=== PATIENT | female | born 1995 | race Caucasian/White ===

== ENCOUNTER 2017-08-04 16:29 | Emergency (ER) | payer OTHER, MEDICAID ==
[~2017-08-04] VITALS: Ht 185.4 cm; Wt 51.7 kg
[2017-08-04 16:35] VITALS: BP 111/56
[2017-08-04] MEDS ORDERED: ZOLOFT25 MG PO (16:36)
[2017-08-04] MEDS ORDERED: AMOXICILLIN 50500 MG PO (17:05)
== END 2017-08-04 17:11 | disposition home or self-care (01) ==
LOC: M.ERS 16:29
DX: H72.92 Unspecified perforation of tympanic membrane, left ear (principal); F32.9 Major depressive disorder, single episode, unspecified

== ENCOUNTER 2017-09-28 18:46 | Emergency (ER) | payer OTHER, MEDICAID ==
[~2017-09-28] VITALS: Ht 185.4 cm; Wt 52.2 kg
[~2017-09-28 18:46] MED LIST: AMOXICILLIN 50500 MG PO; ZOLOFT25 MG PO
[2017-09-28 19:22] LABS: ABSOLUTE EOSINOPHILS 0.1 thou/uL (0.0-0.7); ABSOLUTE LYMPHOCYTES 2.4 thou/uL (0.8-5.3); ABSOLUTE NEUTROPHILS 3.9 thou/uL (1.6-8.1); BASOPHILS 0.6 %; EOSINOPHILS 1.4 %; HEMATOCRIT 37.6 % (37.0-47.0); HEMOGLOBIN 12.7 gm/dL (12.0-15.0); LYMPHOCYTES 32.2 %; MCH 29.2 pg (26.0-34.0); MCHC 33.6 g/dL (28.0-37.0); MCV 86.8 fL (80.0-100.0); MONOCYTES 12.9 %; MPV 8.8 fl. (7.2-11.1); NUCLEATED RBCS 0 /100WBC; PLATELET COUNT* 231 thou/uL (150-400); POLYS 52.9 %; RBC 4.33 mil/uL (4.20-5.00); RDW-CV 14.4 % (10.5-14.5); WBC 7.4 thou/uL (4.0-11.0)
[2017-09-28 19:31] LABS: CALCIUM 9.1 mg/dL (8.5-10.1); CREATININE 0.7 mg/dL (0.6-1.3); POTASSIUM 3.7 mmol/L (3.5-5.1)
[2017-09-28 19:36] LABS: ALBUMIN 3.7 g/dL (3.4-5.0); TOTAL BILIRUBIN 0.4 mg/dL (<0.1-1.0); TOTAL PROTEIN 6.4 g/dL (6.4-8.2)
[2017-09-28] MEDS ORDERED: ROBAXIN500 MG PO (20:17)
[2017-09-28 20:33] VITALS: BP 101/52
--- NOTE | 2017-09-30 12:59 | EKG ---
[place] [address] ELECTROCARDIOGRAM REPORT Name: SERG KELLY Room: [facility]#: [id number] Admission: 09/28/17 Attend Phys: Discharge: 09/28/17 Date of : [birth year] Report #: [id number] THIS REPORT FOR: //name// [facility] ED Test Date: 2017-09-28 Test Time: 18:51:01 Pat Name: SERG KELLY Department: Room: Gender: F Customer Support Specialist: Marcus GOLDMAN : 1995 Requested By: Guerrero Jorgensen Order Number: [id number] MD: Swapnil Robles Measurements Intervals [place] Rate: 64 P: -3 FL: 145 QRS: 79 QRSD: 96 T: 49 QT: 414 QTc: 427 Interpretive Statements Sinus rhythm No previous ECG available for comparison Electronically Signed On 09-30-2017 12:58:52 CDT by Swapnil Robles [email or web address] <ELECTRONICALLY SIGNED> By: Aashish Robles MD, [facility] 09/30/17 1258 1851 1851 Aashish Robles MD, FACC /EPI
== END 2017-09-28 20:34 | disposition home or self-care (01) ==
LOC: M.ERS 18:46
PROVIDERS: Nurse Practitioner Family
DX: R07.89 Other chest pain (principal); F32.9 Major depressive disorder, single episode, unspecified; F17.200 Nicotine dependence, unspecified, uncomplicated

== ENCOUNTER 2018-06-23 16:12 | Emergency (ER) | payer OTHER, MEDICAID ==
[~2018-06-23] VITALS: Ht 185.4 cm; Wt 51.7 kg
[~2018-06-23 16:12] MED LIST changes: +ROBAXIN500 MG PO
[2018-06-23] MEDS ORDERED: NOHOMEMEDICATIONS (16:32)
[2018-06-23 17:10] VITALS: BP 124/62
== END 2018-06-23 17:10 | disposition home or self-care (01) ==
LOC: M.ERS 16:12
DX: S40.022A Contusion of left upper arm, initial encounter (principal); F32.9 Major depressive disorder, single episode, unspecified; X58.XXXA Exposure to other specified factors, initial encounter; Y93.89 Activity, other specified; Y92.89 Other specified places as the place of occurrence of the external cause; Y99.8 Other external cause status

== ENCOUNTER 2018-11-18 11:53 | Emergency (ER) | payer OTHER, MEDICAID ==
[~2018-11-18] VITALS: Ht 185.4 cm; Wt 52.2 kg
[~2018-11-18 11:53] MED LIST changes: +ACETAMINOPHEN-1 EAC1 PO; +NOHOMEMEDICATIONS
[2018-11-18] MEDS ORDERED: IBUPROFEN 600600 M1 PO (13:51)
[2018-11-18] MEDS ORDERED: ROBAXIN 750 MG750 M1 PO (13:51)
[2018-11-18 14:00] VITALS: BP 103/56
== END 2018-11-18 14:00 | disposition home or self-care (01) ==
LOC: M.ERS 11:53
DX: M25.511 Pain in right shoulder (principal); F32.9 Major depressive disorder, single episode, unspecified; Z90.49 Acquired absence of other specified parts of digestive tract; Z91.040 Latex allergy status

== ENCOUNTER 2019-01-18 21:42 | Emergency (ER) | payer OTHER ==
[~2019-01-18] VITALS: Ht 185.4 cm; Wt 52.2 kg
[~2019-01-18 21:42] MED LIST changes: +IBUPROFEN 600600 M1 PO; +ROBAXIN 750 MG750 M1 PO
[2019-01-18 23:10] VITALS: BP 117/67
== END 2019-01-18 23:12 | disposition home or self-care (01) ==
LOC: M.ERS 21:42
DX: M25.531 Pain in right wrist (principal); F32.9 Major depressive disorder, single episode, unspecified; Z91.040 Latex allergy status; Z90.49 Acquired absence of other specified parts of digestive tract

== ENCOUNTER 2019-04-20 13:30 | Emergency (ER) | payer OTHER ==
[~2019-04-20] VITALS: Ht 185.4 cm; Wt 52.2 kg
[2019-04-20] MEDS ORDERED: IBUPROFEN 800800 M1 PO (14:46)
[2019-04-20 14:55] VITALS: BP 115/89
== END 2019-04-20 14:56 | disposition home or self-care (01) ==
LOC: M.ERS 13:30
DX: G89.29 Other chronic pain (principal); M25.511 Pain in right shoulder; F32.9 Major depressive disorder, single episode, unspecified; Z90.49 Acquired absence of other specified parts of digestive tract; Z91.040 Latex allergy status

== ENCOUNTER 2019-04-30 19:51 | Emergency (ER) | payer OTHER ==
[~2019-04-30] VITALS: Ht 185.4 cm; Wt 52.2 kg
[~2019-04-30 19:51] MED LIST changes: +IBUPROFEN 800800 M1 PO
[2019-04-30] MEDS ORDERED: ONDANSETRON HCL4 M2 PO (21:03)
[2019-04-30] MEDS ORDERED: IBUPROFEN 800800 M1 PO (21:03)
[2019-04-30 21:14] VITALS: BP 120/66
== END 2019-04-30 21:16 | disposition home or self-care (01) ==
LOC: M.ERS 19:51
DX: M54.6 Pain in thoracic spine (principal); F32.9 Major depressive disorder, single episode, unspecified; F17.210 Nicotine dependence, cigarettes, uncomplicated; Z91.040 Latex allergy status; Z98.890 Other specified postprocedural states; W01.0XXA Fall on same level from slipping, tripping and stumbling without subsequent striking against object, initial encounter; Y93.89 Activity, other specified; Y92.89 Other specified places as the place of occurrence of the external cause; Y99.0 Civilian activity done for income or pay

== ENCOUNTER 2020-01-23 21:34 | Emergency (ER) | payer OTHER ==
[~2020-01-23] VITALS: Ht 185.4 cm; Wt 49.9 kg
[~2020-01-23 21:34] MED LIST changes: +ONDANSETRON HCL4 M2 PO
[2020-01-23 22:28] LABS: ABSOLUTE LYMPHOCYTES 1.1 thou/uL (0.8-5.3); ABSOLUTE MONOCYTES 0.4 thou/uL (0.0-1.2); ABSOLUTE NEUTROPHILS 7.7 thou/uL (1.6-8.1); BASOPHILS 0.3 %; EOSINOPHILS 0.2 %; HEMATOCRIT 40.9 % (37.0-47.0); HEMOGLOBIN 14.1 gm/dL (12.0-15.0); LYMPHOCYTES 12.2 %; MCH 30.3 pg (26.0-34.0); MCHC 34.4 g/dL (28.0-37.0); MCV 88.1 fL (80.0-100.0); MONOCYTES 4.4 %; MPV 8.8 fl. (7.2-11.1); NUCLEATED RBCS 0 /100WBC; PLATELET COUNT* 236 thou/uL (150-400); POLYS 82.9 %; RBC 4.65 mil/uL (4.20-5.00); RDW-CV 14.3 % (10.5-14.5); WBC 9.3 thou/uL (4.0-11.0)
[2020-01-23 22:47] LABS: CALCIUM 9.4 mg/dL (8.5-10.1); CREATININE 0.8 mg/dL (0.6-1.3)
[2020-01-23 22:51] LABS: ALBUMIN 4.6 g/dL (3.4-5.0); TOTAL BILIRUBIN 0.9 mg/dL (<0.1-1.0); TOTAL PROTEIN 7.6 g/dL (6.4-8.2)
[2020-01-23 23:50] LABS: URINE BLOOD NEGATIVE (Negative); URINE CLARITY CLEAR; URINE COLOR YELLOW; URINE GLUCOSE-RANDOM NEGATIVE (Negative); URINE KETONES 1+ (Negative); URINE LEUKOCYTES-REFLEX NEGATIVE (Negative); URINE NITRITE-REFLEX NEGATIVE (Negative); URINE PROTEIN NEGATIVE (Negative); URINE SPECIFIC GRAVITY >= 1.030 (1.005-1.030); URINE UROBILINOGEN 0.2 E.U./dl (0.2-1.0)
[2020-01-23 23:51] LABS: ICTOTEST (BILI CONFIRMATORY) Negative (Negative); URINE BILIRUBIN 1+ (Negative)
[2020-01-24] MEDS ORDERED: ZOFRAN ODT4 MG PO (00:34)
[2020-01-24 00:48] VITALS: BP 103/55
== END 2020-01-24 00:50 | disposition home or self-care (01) ==
LOC: M.ERS 21:34
PROVIDERS: Emergency Medicine
DX: R11.2 Nausea with vomiting, unspecified (principal); R10.32 Left lower quadrant pain; F32.9 Major depressive disorder, single episode, unspecified; Z90.49 Acquired absence of other specified parts of digestive tract; Z91.040 Latex allergy status

== ENCOUNTER 2020-03-11 11:17 | Emergency (ER) | payer OTHER ==
[~2020-03-11] VITALS: Ht 185.4 cm; Wt 51.7 kg
[~2020-03-11 11:17] MED LIST changes: +ZOFRAN ODT4 MG PO
[2020-03-11 11:48] LABS: ABSOLUTE EOSINOPHILS 0.1 thou/uL (0.0-0.7); ABSOLUTE LYMPHOCYTES 1.5 thou/uL (0.8-5.3); ABSOLUTE MONOCYTES 0.6 thou/uL (0.0-1.2); ABSOLUTE NEUTROPHILS 2.6 thou/uL (1.6-8.1); EOSINOPHILS 2.6 %; HEMATOCRIT 39.8 % (37.0-47.0); HEMOGLOBIN 13.7 gm/dL (12.0-15.0); LYMPHOCYTES 31.6 %; MCH 30.7 pg (26.0-34.0); MCHC 34.5 g/dL (28.0-37.0); MCV 89.1 fL (80.0-100.0); MONOCYTES 11.8 %; NUCLEATED RBCS 0 /100WBC; PLATELET COUNT* 189 thou/uL (150-400); RBC 4.47 mil/uL (4.20-5.00); RDW-CV 13.7 % (10.5-14.5); WBC 4.8 thou/uL (4.0-11.0)
[2020-03-11 12:12] LABS: CALCIUM 8.9 mg/dL (8.5-10.1); CREATININE 0.8 mg/dL (0.6-1.3); POTASSIUM 3.6 mmol/L (3.5-5.1)
[2020-03-11 12:17] LABS: ALBUMIN 3.7 g/dL (3.4-5.0); TOTAL BILIRUBIN 0.6 mg/dL (<0.1-1.0); TOTAL PROTEIN 6.3 g/dL (6.4-8.2)
[2020-03-11 12:47] VITALS: BP 113/41
== END 2020-03-11 12:49 | disposition home or self-care (01) ==
LOC: M.ERS 11:17
PROVIDERS: Family Medicine
DX: R20.2 Paresthesia of skin (principal); Z20.828 Contact with and (suspected) exposure to other viral communicable diseases; F12.90 Cannabis use, unspecified, uncomplicated; F17.210 Nicotine dependence, cigarettes, uncomplicated; Z91.040 Latex allergy status; Z90.49 Acquired absence of other specified parts of digestive tract

== ENCOUNTER 2020-03-14 09:40 | Emergency (ER) | payer MEDICAID ==
[~2020-03-14] VITALS: Ht 185.4 cm; Wt 51.7 kg
[2020-03-14] MEDS ORDERED: MOBIC7.5 MG PO (10:11)
[2020-03-14] MEDS ORDERED: FLEXERIL PO (10:11)
[2020-03-14] MEDS ORDERED: NORCO 5-325 TA1 EAC2 PO (10:11)
[2020-03-14 10:15] VITALS: BP 108/63
== END 2020-03-14 10:15 | disposition home or self-care (01) ==
LOC: M.ERS 09:40
DX: M25.511 Pain in right shoulder (principal); M25.512 Pain in left shoulder; F17.210 Nicotine dependence, cigarettes, uncomplicated; Z90.49 Acquired absence of other specified parts of digestive tract; Z91.040 Latex allergy status

== ENCOUNTER 2020-04-15 16:24 | Emergency (ER) | payer MEDICAID ==
[~2020-04-15] VITALS: Ht 185.4 cm; Wt 52.2 kg
[~2020-04-15 16:24] MED LIST changes: +FLEXERIL PO; +MOBIC7.5 MG PO; +NORCO 5-325 TA1 EAC2 PO
[2020-04-15 16:45] LABS: URINE BILIRUBIN NEGATIVE (Negative); URINE BLOOD NEGATIVE (Negative); URINE CLARITY CLEAR; URINE COLOR YELLOW; URINE GLUCOSE-RANDOM NEGATIVE (Negative); URINE KETONES NEGATIVE (Negative); URINE LEUKOCYTES-REFLEX NEGATIVE (Negative); URINE NITRITE-REFLEX NEGATIVE (Negative); URINE PROTEIN NEGATIVE (Negative); URINE SPECIFIC GRAVITY >= 1.030 (1.005-1.030); URINE UROBILINOGEN 0.2 E.U./dl (0.2-1.0)
[2020-04-15 17:16] VITALS: BP 120/75
== END 2020-04-15 17:16 | disposition home or self-care (01) ==
LOC: M.ERS 16:24
PROVIDERS: Physician Assistant
DX: Z32.02 Encounter for pregnancy test, result negative (principal); F32.9 Major depressive disorder, single episode, unspecified; F17.210 Nicotine dependence, cigarettes, uncomplicated; Z90.49 Acquired absence of other specified parts of digestive tract; Z91.040 Latex allergy status

== ENCOUNTER 2021-02-27 18:08 | Emergency (ER) | payer OTHER ==
[~2021-02-27] VITALS: Ht 185.4 cm; Wt 52.2 kg
[2021-02-27] MEDS ORDERED: NAPROSYN500 MG PO (20:44)
[2021-02-27] MEDS ORDERED: FLEXERIL PO (20:44)
[2021-02-27 20:51] VITALS: BP 121/70
== END 2021-02-27 20:51 | disposition home or self-care (01) ==
LOC: M.ERS 18:08
DX: M25.511 Pain in right shoulder (principal); M25.551 Pain in right hip; J06.9 Acute upper respiratory infection, unspecified; F32.9 Major depressive disorder, single episode, unspecified; F17.210 Nicotine dependence, cigarettes, uncomplicated; Z90.49 Acquired absence of other specified parts of digestive tract; Z91.040 Latex allergy status